=== PATIENT | female | born 1980 | race Hispanic/Latino ===

== ENCOUNTER → 2016-08-19 | Outpatient (CLI) | payer BC | LOC: YCFC.O 14:00 | PROVIDERS: ATTEND Nurse Practitioner Family | DX: R50.9 Fever, unspecified (principal) ==

== ENCOUNTER → 2017-07-23 | Outpatient (CLI) | payer BC ==
--- NOTE | 2017-07-23 14:45 | RAD ---
EXAM DESCRIPTION: Chest,2 Views CLINICAL HISTORY: ATYPICAL CHEST PN COMPARISON: 06/07/2014 TECHNIQUE: PA/lateral FINDINGS: The lungs are well expanded and clear. No infiltrates or effusions or masses are noted. The heart is normal in size and shape with no evidence of vascular congestion. The alfonzo and mediastinum demonstrate normal contours. The bony spine and chest wall is normal for age in appearance. IMPRESSION: Normal chest, two views Electronically signed by: Noah Flores MD 07/23/2017 2:44 PM HEALTH COUNSELOR
== END | disposition home or self-care (01) ==
LOC: LAB.O 09:40
PROVIDERS: ATTEND Nurse Practitioner Family
DX: R07.89 Other chest pain (principal); Z13.220 Encounter for screening for lipoid disorders; Z13.1 Encounter for screening for diabetes mellitus

== ENCOUNTER → 2018-11-02 | Outpatient (CLI) | payer BC ==
--- NOTE | 2018-11-03 11:47 | US ---
EXAM DESCRIPTION: Gall Bladder: ULTRASOUND. CLINICAL HISTORY: RUQ PAIN COMPARISON: None. TECHNIQUE: Transabdominal scanning: Khoury-scale and Doppler modes. FINDINGS: Gallbladder: Contracted with multiple hyperechoic and hypoechoic echoes with the hyperechoic echoes small. No fluid around the gallbladder. No wall thickening. 1.7 mm. Non-tender with transducer pressure. Common bile duct: caliber 2.7 mm within normal limits. Liver: Increased echogenicity; contour liver capsule smooth where seen. No fluid around the liver. Intrahepatic biliary ducts normal caliber. Doppler hepatopedal flow portal vein.. Long axis right lobe 21 cm. Pancreas: Not well seen due to intestinal gas. Duct not seen. Aorta: Normal caliber proximal and mid segment. Distal segment obscured by intestinal gas. Right kidney: 11.3 cm long axis. Collecting systems appear to be partially . Anechoic mass most likely cyst in the inferior kidney measuring 3.7 x 2.7 x 3.7 cm. Normal cortical thickness and echogenicity. No hydronephrosis, echogenic stones, or perirenal fluid. IMPRESSION: 1. Cholelithiasis of the gallbladder with no wall thickening, surrounding fluid, or tenderness. Normal caliber of the common bile duct. Gallbladder function is in question clinically, consider hepatobiliary radionuclide scan with ejection fraction. 2. Fatty enlarged liver with normal ducts. No focal lesions. Normal vascularity. Smooth capsule with no ascites. 3. 3.7 cm cyst in the right kidney otherwise unremarkable. Normal caliber of the abdominal aorta. Pancreas and distal abdominal aorta obscured by intestinal gas. Electronically signed by: Jack De La Rosa MD 11/03/2018 11:44 AM CDT
== END ==
LOC: YCFC.O 16:20
PROVIDERS: ATTEND Nurse Practitioner Family
DX: K80.20 Calculus of gallbladder without cholecystitis without obstruction (principal); K76.0 Fatty (change of) liver, not elsewhere classified; N28.1 Cyst of kidney, acquired

== ENCOUNTER → 2020-05-27 | Outpatient (CLI) | payer BC | LOC: YCFC.O 10:18 | PROVIDERS: ATTEND Nurse Practitioner | DX: Z20.828 Contact with and (suspected) exposure to other viral communicable diseases (principal) ==